=== PATIENT | female | born 2000 | race Caucasian/White ===

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

== ENCOUNTER 2019-07-01 12:49 | Emergency (ER) | payer OTHER, BC ==
[2019-07-01 13:22] VITALS: BP 119/71
--- NOTE | 2019-07-01 13:39 | UC ---
Throat Pain/Nasal Marcelino HPI - HPI Summary HPI Summary: sore throat x 4 days nasal congestion , cough , pnd no fever, no chills, no body aches - History of Current Complaint Chief Complaint: UCRespiratory Stated Complaint: ST,COUGH,CONGESTION Time Seen by Provider: 07/01/19 13:16 Hx Obtained From: Patient Hx Last Menstrual Period: 06/24/19 ?: No Onset/Duration: Gradual Onset, Lasting Days - 4, Still Present Severity: Moderate Pain Intensity: 5 Cough: Nonproductive Associated Signs & Symptoms: Positive: Nasal Discharge. Negative: Wheezing, Hoarseness, Sinus Discomfort, Fever, Vomiting, Rash - Allergies/Home Medications Allergies/Adverse Reactions: Allergies Allergy/AdvReac Type Severity Reaction Status Date / Time No Known Allergies Allergy Verified 07/01/19 13:18 Home Medications: Home Medications NK [No Home Medications Reported] 07/01/19 [History Confirmed 07/01/19] PMH/Surg Hx/FS Hx/Imm Hx Previously Healthy: Yes - Surgical History Surgical History: None - Family History Known Family History: Positive: Cardiac Disease - Social History Alcohol Use: Occasionally Substance Use Type: None Smoking Status (MU): Never Smoked Tobacco Have You Smoked in the Last Year: No Review of Systems All Other Systems Reviewed And Are Negative: Yes Constitutional: Positive: Negative ENT: Positive: Sore Throat, Nasal Discharge Respiratory: Positive: Cough Is Patient Immunocompromised?: No Physical Exam Triage Information Reviewed: Yes Appearance: Well-Appearing, No Pain Distress, Well-Nourished Vital Signs: Initial Vital Signs Temp 98.4 F 07/01/19 13:18 Pulse 76 07/01/19 13:18 Resp 16 07/01/19 13:18 BP 119/71 07/01/19 13:18 Pulse Ox 100 07/01/19 13:18 Vital Signs Reviewed: Yes Eye Exam: Normal Eyes: Positive: Conjunctiva Clear ENT: Positive: Normal ENT inspection, Hearing grossly normal, Pharyngeal erythema, Nasal congestion, TMs normal. Negative: Nasal drainage, TM bulging, TM dull, TM red, Tonsillar swelling, Tonsillar exudate, Sinus tenderness Neck: Positive: Supple, No Lymphadenopathy Respiratory: Positive: Chest non-tender, Lungs clear, Normal breath sounds, No respiratory distress Cardiovascular: Positive: RRR, No Murmur, Pulses Normal Throat Pain/Nasal Course/Dx - Differential Dx/Diagnosis Provider Diagnosis: URI (upper respiratory infection) Discharge ED - Sign-Out/Discharge Documenting (check all that apply): Patient Departure All imaging exams completed and their final reports reviewed: No Studies - Discharge Plan Condition: Stable Disposition: HOME Patient Education Materials: Upper Respiratory Infection (DC) Referrals: Non Staff,Doctor [Primary Care Provider] - If Needed - Billing Disposition and Condition Condition: STABLE Disposition: Home
== END 2019-07-01 13:44 | disposition home or self-care (01) ==
LOC: UCCORT 12:49
DX: J06.9 Acute upper respiratory infection, unspecified (principal)
CPT/HCPCS: 87651; 99211; G0463